=== PATIENT | female | born 1970 | race Two or more races ===

== ENCOUNTER 2020-08-31 11:15 | Inpatient (IN) | payer OTHER ==
[~2020-08-31] VITALS: Ht 170.2 cm; Wt 99.8 kg
[~2020-08-31 11:15] MED LIST: CLONAZEPAM1 M1 PO; CRESTOR10 MG PO; LOSARTAN-HCTZ1 EAC2 PO; METFORMIN HCL500 M3 PO; NIFE60TA3 PO; ZOLOFT25 MG PO
[2020-09-10] MEDS ORDERED: CODE1TAB37 PO (07:26)
[2020-09-10] MEDS ORDERED: HYOSCYAMINE0.125 M1 SL (07:26)
[2020-09-10] MEDS ORDERED: IBUPROFEN800 MG PO (07:27)
== END 2020-09-10 09:44 | disposition home or self-care (01) | DRG 743 ==
LOC: O/R 09-07 07:30 → SURH 09-07 09:45 → OB/GYN 09-07 17:21 → SURG-SUITE 09-07 19:13
PROVIDERS: ADMIT Obstetrics & Gynecology; ATTEND Obstetrics & Gynecology
PROC: 0UB70ZZ Excision of Bilateral Fallopian Tubes, Open Approach (ICD-10-PCS; 2020-09-07)
PROC: 0TJB8ZZ Inspection of Bladder, Via Natural or Artificial Opening Endoscopic (ICD-10-PCS; 2020-09-07)
PROC: 0UT90ZZ Resection of Uterus, Open Approach (ICD-10-PCS; principal; 2020-09-07 09:45)
DX: D25.1 Intramural leiomyoma of uterus (principal); N81.11 Cystocele, midline; N72 Inflammatory disease of cervix uteri; N83.8 Other noninflammatory disorders of ovary, fallopian tube and broad ligament; N80.0 Endometriosis of uterus; N94.5 Secondary dysmenorrhea; D50.0 Iron deficiency anemia secondary to blood loss (chronic); N73.6 Female pelvic peritoneal adhesions (postinfective); I10 Essential (primary) hypertension; E78.00 Pure hypercholesterolemia, unspecified; E11.9 Type 2 diabetes mellitus without complications